=== PATIENT | female | born 1970 | race African-American/Black ===

== ENCOUNTER 2020-01-19 10:45 | Observation (INO) ==
[2020-01-19 13:22] LABS: Basophils % 0.2 % (0.0-0.8); Eosinophils % 0.4 % (0.00-10.9); Hematocrit 37.9 VOL% (35.7-47.0); Hemoglobin 12.3 GM/DL (12.0-16.0); Immature Granulocytes % 0.6 %; Immature Granulocytes Absolute 0.05 #; Lymphocytes # 1.6 10*3/uL (1.4-4.0); Mean Corpuscular HGB Conc 32.5 GM/DL (32-36); Mean Corpuscular Volume 92.2 FL (87-102); Mean Platelet Volume 10.9 FL (9.6-12.0); Monocytes % 4.5 % (1.7-12.7); Neutrophils % 75.3 % (38.7-73.9); Platelet Count 231 T/CUMM (130-400); Red Blood Count 4.11 MC/CUMM (3.8-5.5); Red Cell Distribution Width 13.3 % (9.3-17.3); White Blood Count 8.3 T/CUMM (4-12)
[2020-01-19 13:51] LABS: Albumin 3.5 G/DL (3.4-5.0); Bilirubin,Total 0.5 MG/DL (0.2-1.0); Calcium 8.9 MG/DL (8.5-10.1); Osmolality,Calculated 279.7 MOS/KG (273-304); Total Protein 8.1 G/DL (6.4-8.3)
[2020-01-19 13:58] LABS: PT Patient Result 10.9 SECS (9.8-11.9); Partial Thromboplastin Time 27.4 SECS (23.9-33.8)
[2020-01-19 14:29] LABS: Ferritin 116.4 ng/ml (8-252)
[2020-01-19] MEDS ORDERED: cefTRIAXone 1,000 MG in SODIUM CHLORIDE 0.9% 100 ML IV STA (14:29)
[2020-01-19 14:59] LABS: Anisocytosis 1+
[2020-01-19 15:00] LABS: Platelet Estimate Normal
[2020-01-19] MEDS ORDERED: cefTRIAXone 1,000 MG VIAL ONE (15:15)
[2020-01-19] MEDS ORDERED: SODIUM CHLORIDE 0.9% 250 ML IV ONE (15:15)
[2020-01-19 15:40] LABS: Bacteria,Urine Many /HPF (Few); Bilirubin,Urine Negative (Negative); Blood, Urine Small mg/dL (Negative); Glucose,Urine (UA) Negative (Negative); Hyaline Casts,Urine 2 /LPF (0-3); Ketones,Urine Negative (Negative); Mucus,Urine Occasional /LPF (Occasional); Nitrite,Urine Negative (Negative); Protein,Urine 100 MG/DL; RBC,Urine 3 /HPF (0-4); Squamous Epithelial Cell,Urine Occasional /HPF (0-10); Urine Appearance CLEAR (Clear); Urine Color Yellow (Yellow); Urine Specific Gravity 1.029 (1.001-1.035); Urine Urobilinogen < 2.0 EU/DL (0.2-1.0); WBC,Urine 27 /HPF (0-6)
[2020-01-19] MEDS ORDERED: MORPHINE 4 MG/1 ML VIAL IV PRN (15:49)
[2020-01-19] MEDS ORDERED: ONDANSETRON 4 MG/2 ML VIAL IV PRN (15:49)
[2020-01-19] MEDS ORDERED: DEXTROSE 50% 25 GM/50 ML VIAL IV PRN (15:49)
[2020-01-19] MEDS ORDERED: ACETAMINOPHEN 325 MG TABLET PO PRN (15:49)
[2020-01-19] MEDS ORDERED: GLUCAGON 1 MG VIAL IM PRN (15:49)
[2020-01-19] MEDS ORDERED: HEPARIN 5,000 UNIT/1 ML VIAL IV ONE (15:56)
[2020-01-19] MEDS ORDERED: hydrALAZINE 20 MG/1 ML VIAL IV STA (17:05)
[2020-01-19] MEDS ORDERED: cloNIDine 0.1 MG TABLET ONE (17:25)
[2020-01-19] MEDS ORDERED: cloNIDine 0.1 MG TABLET PO STA (17:25)
[2020-01-19 17:32] LABS: Risk Ratio 5.05; Thyroid Stimulating Hormone 1.08 uIU/ml (0.358-3.74); VLDL CHOLESTEROL 41.8 MG/DL
[2020-01-19] MEDS: INSULIN REGULAR 100 UNIT/ML SUBCUT SCH ×2 (17:40→20:12)
[2020-01-19] MEDS: HEPARIN DRIP 25,000 UNITS/500 ML PREMIX IV SCH (17:54)
[2020-01-19] MEDS: ACETYLCYSTEINE 600 MG CAPSULE PO SCH ×2 (17:54→20:13)
[2020-01-19] MEDS ORDERED: ENOXAPARIN 120 MG/0.8 ML SYRINGE SUBCUT SCH (18:00)
[2020-01-19] MEDS: SODIUM BICARB INJ 50 MEQ in SODIUM CHLORIDE 0.45% 1,000 ML IV SCH (22:26)
[2020-01-20 06:09] LABS: Basophils % 0.3 % (0.0-0.8); Eosinophils # 0.1 10*3/uL (0.0-0.87); Eosinophils % 1.8 % (0.00-10.9); Hematocrit 31.7 VOL% (35.7-47.0); Hemoglobin 10.5 GM/DL (12.0-16.0); Immature Granulocytes % 0.9 %; Immature Granulocytes Absolute 0.06 #; Lymphocytes # 2.1 10*3/uL (1.4-4.0); Lymphocytes % 30.3 % (21.3-54.2); Mean Corpuscular HGB Conc 33.1 GM/DL (32-36); Mean Platelet Volume 11.3 FL (9.6-12.0); Monocytes % 7.2 % (1.7-12.7); Neutrophils % 59.5 % (38.7-73.9); Platelet Count 200 T/CUMM (130-400); Red Blood Count 3.41 MC/CUMM (3.8-5.5); Red Cell Distribution Width 13.4 % (9.3-17.3); White Blood Count 6.8 T/CUMM (4-12)
[2020-01-20 06:35] LABS: Albumin 2.8 G/DL (3.4-5.0); Bilirubin,Total 0.7 MG/DL (0.2-1.0); Calcium 8.4 MG/DL (8.5-10.1); Total Protein 6.7 G/DL (6.4-8.3)
[2020-01-20 07:11] LABS: Anisocytosis 1+; Band Neutrophils 1 % (0-10); Eosinophils 1 % (0-10); Lymphocytes 32 % (20-55); Macrocytosis 1+; Platelet Estimate Normal; Segmented Neutrophils 56 % (50-85); Total Cells Counted 100
[2020-01-20] MEDS: INSULIN REGULAR 100 UNIT/ML SUBCUT SCH ×4 (09:49→22:35)
[2020-01-20] MEDS: ACETYLCYSTEINE 600 MG CAPSULE PO SCH ×2 (09:50→22:35)
[2020-01-20] MEDS: SODIUM BICARB INJ 50 MEQ in SODIUM CHLORIDE 0.45% 1,000 ML IV SCH (14:45)
[2020-01-20] MEDS: HEPARIN DRIP 25,000 UNITS/500 ML PREMIX IV SCH (16:30)
[2020-01-21] MEDS: SODIUM BICARB INJ 50 MEQ in SODIUM CHLORIDE 0.45% 1,000 ML IV SCH (02:07)
[2020-01-21] MEDS: HEPARIN DRIP 25,000 UNITS/500 ML PREMIX IV SCH (06:05)
[2020-01-21 06:13] LABS: Calcium 8.1 MG/DL (8.5-10.1); Osmolality,Calculated 277.7 MOS/KG (273-304)
[2020-01-21] MEDS: INSULIN REGULAR 100 UNIT/ML SUBCUT SCH ×2 (09:10→12:50)
[2020-01-21] MEDS: ACETYLCYSTEINE 600 MG CAPSULE PO SCH (09:11)
[2020-01-21 11:14] VITALS: BP 126/76
== END 2020-01-21 12:50 | disposition home or self-care (01) ==
LOC: N.ED 10:45 → N.2E 10:45 → SUATTDRO 15:49 → N.2E 17:37
PROVIDERS: ADMIT Internal Medicine; ATTEND Family Medicine